=== PATIENT | female | born 1970 | race Caucasian/White ===

== ENCOUNTER → 2018-03-16 | Outpatient (CLI) | payer OTHER ==
[~2018-03-16] VITALS: Ht 154.9 cm; Wt 76.2 kg
[~2018-03-16] MED LIST: DEPO-PROVER150 MG/ML IM; EXCEDRIN MIGRA1 EAC3 PO; ISAGENIX PO; MIRENA52 MG IY
== END | disposition home or self-care (01) ==
LOC: AMB 02-20 09:30 → OPR 02-20 11:45 → AMB 02-20 12:00 → OPR 02-20 12:00 → AMB 02-28 10:00
PROC: 0DBF8ZX Excision of Right Large Intestine, Via Natural or Artificial Opening Endoscopic, Diagnostic (ICD-10-PCS; principal; 2018-03-16)
DX: Z12.11 Encounter for screening for malignant neoplasm of colon (principal); D12.2 Benign neoplasm of ascending colon; Z83.3 Family history of diabetes mellitus; Z87.891 Personal history of nicotine dependence; Z88.0 Allergy status to penicillin
CPT/HCPCS: 88305

== ENCOUNTER 2018-07-07 07:23 | Day surgery (SDC) | payer OTHER ==
[~2018-07-07] VITALS: Ht 154.9 cm; Wt 76.2 kg
[~2018-07-07 07:23] MED LIST changes: +ADVIL200 MG PO
[2018-07-07 07:44] VITALS: BP 134/81
[2018-07-07] MEDS ORDERED: ENDOCET 5-3251 EACH PO (10:25)
[2018-07-07 12:06] VITALS: BP 118/71
[2018-07-07 13:00] VITALS: BP 131/73
[2018-07-07 13:52] VITALS: BP 148/80
== END 2018-07-07 13:56 | disposition home or self-care (01) ==
LOC: SDC 07:23
DX: N93.8 Other specified abnormal uterine and vaginal bleeding (principal); E03.9 Hypothyroidism, unspecified; F32.9 Major depressive disorder, single episode, unspecified; Z87.891 Personal history of nicotine dependence; Z79.82 Long term (current) use of aspirin
CPT/HCPCS: 88305; J0131; J0690; J1100; J1170; J1885; J2250; J2405; J3010; Q0175